=== PATIENT | male | born 2000 | race Caucasian/White ===

== ENCOUNTER 2023-09-07 22:24 | Emergency (ER) | payer BC ==
[2023-09-07] MEDS ORDERED: Lidocaine 2% 20 ML MDV INFILT ONE (22:25)
[2023-09-07] MEDS: Diphtheria,Pertussis(Acell),Tetanus Vaccine 0.5 ML Syringe IM ONE (23:29)
== END 2023-09-07 23:30 | disposition home or self-care (01) ==
LOC: FB.ED 22:24
DX: S61.511A Laceration without foreign body of right wrist, initial encounter (principal); Z23 Encounter for immunization; Z88.0 Allergy status to penicillin; Z88.1 Allergy status to other antibiotic agents; W26.8XXA Contact with other sharp object(s), not elsewhere classified, initial encounter
CPT/HCPCS: 12001; 90471; 90715; 99282-25